=== PATIENT | male | born 1975 | race Caucasian/White ===

== ENCOUNTER 2023-01-21 08:50 | Outpatient (CLI) | payer BC, SELFPAY ==
[2023-01-21 18:44] LABS: Basophils Percent Auto 0.7 % (0.2-1.2); Eosinophils Percent Auto 0.7 % (0-4.4); Hematocrit 49.3 % (42.0-52.0); Hemoglobin 16.1 g/dL (14.0-18.0); Immature Granulocyte Absolute 0.01 K/mm3 (0.00-0.031); Immature Granulocyte Percent A 0.2 % (0-0.5); Lymphocytes Absolute Auto 1.61 K/mm3 (0.9-3.2); Lymphocytes Percent Auto 35.6 % (18.3-44.2); Mean Corpuscular HGB Conc 32.7 g/dl (32-36); Mean Corpuscular Hemoglobin 28.8 pg (26-34); Monocytes Absolute Auto 0.5 K/mm3 (0.1-0.6); Monocytes Percent Auto 10.4 % (2.6-8.5); Neutrophils Absolute Auto 2.4 K/mm3 (1.3-6.7); Neutrophils Percent Auto 52.4 % (45.5-73.1); Platelet Count Result 221 k/mm3 (150-375); Red Cell Distribution Width 13.2 % (11.5-14.5); White Blood Count 4.5 K/mm3 (4.5-10.0)
[2023-01-21 19:29] LABS: Amorphous Sediment Urine Present; Appearance Urine Turbid (Clear); Bacteria Urine None Seen /hpf; Bilirubin Urine Negative (Negative); Blood Urine Negative (Negative); Color Urine Dark Yellow (Yellow); Glucose Urine UA Negative (Negative); Ketones Urine Trace mg/dL (Negative); Leukocyte Esterase Ur Trace LEU/UL (NEGATIVE); Mucus Urine Present /lpf; Need Manual Microscopic Reviewed; Nitrate Urine Negative (Negative); Non Pathogenic Casts 0-2; Protein Urine Trace mg/dL (Negative); RBC Urine 0-2 /hpf (0-2); Specific Grav Ur 1.028 (1.001-1.035); Squamous Epithelial Cell Urine None seen /hpf (Few); WBC Urine 0-5 /hpf (0-3)
[2023-01-21 19:30] LABS: Add Urine Microscopic? YES
[2023-01-21 19:52] LABS: Alanine Aminotransferase 29 U/L (6-50); Albumin Level 4.7 g/dL (3.5-5.1); Alkaline Phosphatase 58 U/L (38-126); Anion Gap 7 mmol/L (8-16); Aspartate Amino Transferase 34 U/L (17-59); Bilirubin,Total 0.9 mg/dL (0.2-1.3); Blood Urea Nitrogen 14 mg/dL (9-20); Calcium 9.2 mg/dL (8.4-10.2); Carbon Dioxide 30 mmol/L (22-30); Chloride 101 mmol/L (98-107); Cholesterol 221 mg/dL (0-200); Estimated Glomerular Filt Rate > 60; Glucose 88 mg/dL (65-110); HDL Direct 45 mg/dL; Potassium 4.3 mmol/L (3.4-5.0); Sodium 138 mmol/L (137-145); Triglycerides 88 mg/dL (<150)
[2023-01-21 20:03] LABS: LDL Cholesterol Direct 145 mg/dL
[2023-01-21 20:22] LABS: Prostate Specific Antigen 0.8 ng/mL (< OR = 4.0)
== END 2023-01-21 08:51 | disposition home or self-care (01) ==
LOC: ANHGOSHLAB 08:51
PROVIDERS: PCP Internal Medicine; Visit Provider Internal Medicine
DX: Z13.228 Encounter for screening for other metabolic disorders (principal); Z13.220 Encounter for screening for lipoid disorders; Z12.5 Encounter for screening for malignant neoplasm of prostate; Z80.51 Family history of malignant neoplasm of kidney
CPT/HCPCS: 36415; 80053; 80061; 81001; 84153; 85025; G0103

== ENCOUNTER → 2023-06-07 11:06 | Outpatient (CLI) | payer BC, SELFPAY ==
--- NOTE | ~2023-06-07 | MR_ITS ---
MRI of the brain Clinical History: Dizziness and giddiness Technique: Axial and sagittal T1-weighted images were acquired. These were followed by axial T2-weigh rosie, diffusion weighted, gradient, and FLAIR images. Findings: No abnormal signal seen in the brain parenchyma. No acute infarct, intracranial hemorrhage, or mass lesion. Ventricles and subarachnoid spaces are unremarkable. Orbits are unremarkable. Paranasal sinuses and m astoid air cells are clear. Major intracranial flow voids are grossly intact. Sagittal midline structures are intact. IMPRESSION: No significant abnormality identified. Reviewed, dictated and finalized at location M.
== END ==
PROVIDERS: PCP Internal Medicine; Visit Provider Internal Medicine
DX: R42 Dizziness and giddiness (principal); R51.9 Headache, unspecified
CPT/HCPCS: 70551

== ENCOUNTER 2023-07-15 01:44 | Day surgery (SDC) | payer BC, SELFPAY ==
[2023-07-06 13:33] VITALS: BMI 25.2
--- NOTE | 2023-07-14 14:53 | PM.HPGS ---
History of Present Illness History of Present Illness Consent: Risks, benefits, and alternatives have been discussed and questions answered. Patient agrees to proceed with procedure. Chief complaint: neoplasm screening Narrative: Tone Cantu III is a 47 year old male Referred for colon cancer screening. Review of Systems Review of Systems: All systems reviewed & are unremarkable except as noted in HPI and below PMFSH Past Medical History Medical History Gynecomastia Surgical History Surgical History Joint replaced BL 1995- Right 1998- Left Family History Family History Father MVA (motor vehicle accident) Mother Renal carcinoma Sibling Renal carcinoma Social History Social History Smoking status: Never smoker Alcohol intake: never Substance use: never Substance use type: does not use Lack of Transportation: No Lack of Food: Never True Current Housing: I Have Housing Concerned About Future Housing: No Difficulty Paying Gas/Electric Bills: No Difficulty Paying for Meds: No Currently Unemployed: No Education: Bachelor's Degree Difficulty w/ Childcare or Family Care: No Living arrangements: with family Spiritual care concerns: No Meds Home Medications and Allergies Home Medications Medication Instructions Recorded Confirmed Type ascorbic acid (vitamin C) 100 mg 500 mg PO DAILY 05/25/23 07/15/23 History tablet cholecalciferol (vitamin D3) 100 100 mcg PO DAILY 05/25/23 07/15/23 History mcg (4,000 unit) tablet turmeric 400 mg capsule 500 mg PO DAILY 05/25/23 07/15/23 History vitamin E (dl, acetate) 180 mg 180 mg PO DAILY 05/25/23 07/15/23 History (400 unit) capsule zinc acetate 50 mg (zinc) capsule 50 mg PO DAILY 05/25/23 07/15/23 History Allergies Allergy/AdvReac Type Severity Reaction Status Date / Time No Known Allergies Allergy Verified 07/15/23 07:48 Exam Const: General: alert Orientation/consciousness: patient oriented x3 Resp: Auscultation: clear to auscultation bilaterally Cardio: Rhythm: regular rhythm GI: GI Palp: Yes Soft to palpation and No Tenderness to palpation present (GI) Neuro: General: patient oriented x3 Assessment and Plan Assessment and plan (1) Screening for colon cancer: Code(s): Z12.11 - Encounter for screening for malignant neoplasm of colon Status: Acute Assessment and Plan: Please inform patient that the polyp(s) was/were the 'pre'-cancerous type. Colonoscopy should be repeated within 5 years
[2023-07-15 07:49] VITALS: BP 114/89; PULSE 60; RESP 18; TEMP 36.2; O2SAT 99; BMI 25.9
[2023-07-15] MEDS: LACTATED RINGERS 1,000 ML 150 ML IV CONT (08:01)
--- NOTE | 2023-07-15 08:48 | P.PNAN_ITS ---
Anes - Initial Pre Proc Eval Procedure: Operation Date: 07/15/23 09:00 Proposed Procedures p Screening Colonoscopy - Ike Cutler MD Date/Time: 07/15/23 08:48 Surgeon: Ike Cutler MD Pre Op Diagnosis: neoplasm screening Patient Data Age: 47 Gender: M Height: 1.85 m Weight: 89 kg Last Vital Signs Temp 97.2 F L 07/15/23 07:49 Pulse 60 07/15/23 07:49 Resp 18 07/15/23 07:49 BP 114/89 07/15/23 07:49 Pulse Ox 99 07/15/23 07:49 O2 Del Method Room Air 07/15/23 07:49 Allergies Allergy/AdvReac Type Severity Reaction Status Date / Time No Known Allergies Allergy Verified 07/15/23 07:48 Home Medications Medication Instructions Recorded Confirmed Type ascorbic acid (vitamin C) 100 mg 500 mg PO DAILY 05/25/23 07/15/23 History tablet cholecalciferol (vitamin D3) 100 100 mcg PO DAILY 05/25/23 07/15/23 History mcg (4,000 unit) tablet turmeric 400 mg capsule 500 mg PO DAILY 05/25/23 07/15/23 History vitamin E (dl, acetate) 180 mg 180 mg PO DAILY 05/25/23 07/15/23 History (400 unit) capsule zinc acetate 50 mg (zinc) capsule 50 mg PO DAILY 05/25/23 07/15/23 History Patient hx anesthesia problems: none Family hx anesthesia problems: none Results Review: All pre-operative results and documents have been reviewed as part of the pre- operative evaluation. [facility] Past Medical History Medical History Gynecomastia Surgical History Surgical History Joint replaced BL 1995- Right 1998- Left Family History Family History Father MVA (motor vehicle accident) Mother Renal carcinoma Sibling Renal carcinoma Social History Social History Smoking status: Never smoker Alcohol intake: never Substance use: never Substance use type: does not use Lack of Transportation: No Lack of Food: Never True Current Housing: I Have Housing Concerned About Future Housing: No Difficulty Paying Gas/Electric Bills: No Difficulty Paying for Meds: No Currently Unemployed: No Education: Bachelor's Degree Difficulty w/ Childcare or Family Care: No Living arrangements: with family Spiritual care concerns: No Anes - Eval Final PreProcedure Day of Procedure 07/15/23 08:48 Patient weight: normal Heart: regular rate and rhythm Lungs: clear to auscultation Airway: Mallampati scale class II Neurological: alert and oriented Last oral intake: >/= 8 hours ASA classification: I Emergent: no Anesthetic plan: proceed Anesthesia type and monitoring: general GIVS and standard monitoring Results Review: All pre-operative results and documents have been reviewed as part of the pre- operative evaluation. Informed Consent: The patient's anesthetic plan and its attendant risks and benefits were discussed with the patient/family/POA. Questions were solicited and answers provided to the satisfaction of the patient/family/POA.
[2023-07-15 09:09] VITALS: BP 108/73; PULSE 58; O2SAT 98
[2023-07-15 09:19] VITALS: BP 103/69; PULSE 56; O2SAT 100
[2023-07-15 09:29] VITALS: BP 119/84; PULSE 54; O2SAT 100
== END 2023-07-15 09:50 | disposition home or self-care (01) ==
PROVIDERS: PCP Internal Medicine; Visit Provider Internal Medicine Gastroenterology
PROC: 0DJD8ZZ Inspection of Lower Intestinal Tract, Via Natural or Artificial Opening Endoscopic (ICD-10-PCS; CPT 45378; principal; 2023-07-15 09:00)
DX: Z12.11 Encounter for screening for malignant neoplasm of colon (principal); K64.8 Other hemorrhoids
CPT/HCPCS: 45378; J2704; J7120

== ENCOUNTER 2024-02-29 10:49 | Outpatient (CLI) | payer BC, SELFPAY ==
--- NOTE | ~2024-02-29 | MR_ITS ---
MRI of the right knee Clinical history: Pain Technique: Coronal proton density and proton density-weighted images, sagittal proton-density and T2 fat-sat images, and axial proton-density fat-saturated images were acquired. Findings: Anterior and posterior cruciate ligaments are intact. Medial collateral ligament and the la teral collateral ligament complex are intact. There is complex tearing of the posterior horn and body of the medial meniscus. Lateral meniscus is i ntact, without evidence of tear. 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 There i s mild chondral thinning along the medial femoral condyle. Extensor mechanism is intact. No significant joint effusion or Oconnell's cyst. Impression: Complex tearing of the posterior horn and body of medial meniscus. 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 Reviewed, dictated and finalized at [facility]. Impression: Complex tearing of the posterior horn and body of medial meniscus. 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
== END 2024-02-29 10:50 ==
LOC: GOSHIMG 10:50
PROVIDERS: PCP Internal Medicine
DX: M25.561 Pain in right knee (principal); S83.231A Complex tear of medial meniscus, current injury, right knee, initial encounter; M94.261 Chondromalacia, right knee
CPT/HCPCS: 73721

== ENCOUNTER 2024-12-25 09:50 | Outpatient (CLI) | payer BC, SELFPAY ==
--- NOTE | ~2024-12-25 | MR_ITS ---
MRI of the cervical spine Clinical History: Right shoulder pain Technique: Axial T2-weighted and gradient images, and sagittal T1-weighted, T2-weighted, and STIR edith ges were acquired. Findings: There is no fracture or subluxation of the cervical spine. Vertebral bodies maintain normal height and alignment. No bone marrow signal reality seen. At C2-C3, there is no disc bulge or herniation. No spinal canal stenosis, cord compression, or neural foraminal narrowing. At C3-C4, there is moderate degenerative distended with mild disc osteophyte complex. Old minimal john ateral neural foraminal narrowing. No canal stenosis or cord compression. At C4-C5, there is mild disc osteophyte complex, with mild facet arthropathy. Probable right neural f oraminal narrowing. Left neural foramen preserved. No central canal stenosis or cord compression. At C5-C6, there is moderate degenerative disc narrowing. No spinal canal stenosis or cord compression . Probable minimal bilateral neural foraminal narrowing. At C6-C7, there is moderate degenerative distended with mild bilateral neural foraminal narrowing, le ft worse than right. No canal stenosis or cord compression. No abnormal signal seen in the spinal cord. Paravertebral soft tissues are unremarkable. Impression: Mild to [id number] degenerative sclerotic changes, as above. Reviewed, dictated and finalized at [facility]. Impression: Mild to [id number]-[id number] degenerative sclerotic changes, as above.
== END 2024-12-25 09:51 | disposition home or self-care (01) ==
PROVIDERS: PCP Internal Medicine; Visit Provider Physician Assistant
DX: M47.892 Other spondylosis, cervical region (principal)
CPT/HCPCS: 72141

== ENCOUNTER 2025-02-26 10:21 | Outpatient (CLI) | payer BC, SELFPAY ==
--- OUTSIDE RECORDS SUMMARY | 2025-02-26 10:55 | XMS_ITS | Encounter Summary ---
Author Organization [facility] Address [address] [place] [address] Care Team Providers Care Floor Technician Name Role Phone Unavailable Primary Care Provider Unavailabl e Encounter Details Date Type Department Care Team (Late st Contact Info) Description 08/24/2024 Lab Requisition [facility] - DermPath Lab [address] [place] [address] Mia Jorge DO [address] [address] [place] [address] Social History Tobacco Use Types Packs/Day Years Used Date Smoking Tobacco: Never Assessed Sex and Gender Information Value Date Recorded Sex Assigned at Not on file 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 Gender Identity Not on file Sexual Orientation Not on file documented as of this encounter Plan of Treatment Not on file documented as of this encounter Procedures Procedure Name Priority Date/Time Associated Diagnosis Comments DERMATOPATHOLOGY Routine 08/24/2024 3:10 PM TISSUE TECHNICIAN documented in this encounter Results * DERMATOPATHOLOGY (08/24/2024 3:10 PM TISSUE TECHNICIAN) Case Report Dermatopathology Report Case: [id number] Authorizing Provider: Mia Jorge DO Collected: 08/24/2024 03:10 PM Ordering Location: [facility] Physician [facility] - Received: 08/25/2024 11:11 AM DermPath Lab Pathologist: Ariela Mascorro MD Specimen: Skin, left FA 4 1:21 PM TISSUE TECHNICIAN DERMATOPATHOLOGY LABORATORY Final Diagnosis Specimen A. SKIN, left FA: DERMAL SCAR RESIDUAL SQUAMOUS CELL CARCINOMA NOT IDENTIFIED (L90.5) 4 1:21 PM TISSUE TECHNICIAN DERMATOPATHOLOGY LABORATORY at 1321 TISSUE TECHNICIAN Clinical History SCCIS See prior biopsy 4 1:21 PM [facility] DERMATOPATHOLOGY LABORATORY Gross Description Specimen A: Received is one formalin filled container labeled with the patient's name and designated left FA. The specimen consists of a non-oriented ellipse of skin measuring 14o01e7 mm. The epidermal surface is unremarkable. The margin is inked green. The 12 o'clock and 6 o'clock tips are submitted in cassette 1. The remainder of the ellipse is serially sectioned and submitted in cassette 2-3. Jar 0. 4 1:21 PM [facility] DERMATOPATHOLOGY LABORATORY Microscopic Description Specimen A. SKIN, left FA: There are fibroblasts and collagen bundles oriented parallel to the skin surface. There are elongated blood vessels, some of which are oriented perpendicular to the skin surface. No residual squamous cell carcinoma is identified. 1:21 PM [facility] DERMATOPATHOLOGY LABORATORY Disclaimer An external and internal positive and negative controls are appropriate for the histochemical, immunohistochemical and immunofluorescence stain(s) in this case (if any), except where stated explicitly. The performance characteristics of the stain(s) cited in this report were developed and its performance characteristic determined by the Dermatopathology Laboratory at [facility], directed by Dr. Trupti Rosa. These tests need not be, and therefore are not, approved by the [place] Food and Drug Administration. The tests are used for clinical purposes. Billing Codes Specimen Charges Stain Charges 20286 1 4 1:21 PM [facility] DERMATOPATHOLOGY LABORATORY Embedded Images 1:21 PM [facility] DERMATOPATHOLOGY LABORATORY Pathology/Cytolo gy TISSUE SPECIMEN FROM SKIN / Unknown 08/24/2024 3:10 PM TISSUE TECHNICIAN 08/25/2024 11:11 AM [facility] us Mia Jorge DO LAB - PATHOLOGY/CYTOLOGY ORDERABLES Final Result DERMATOPATHOLOGY LABORATORY [facility] - Department of Dermatology [address] [place] [address], [facility] [phone] documented in this encounter Visit Diagnoses Not on filedocumented in this encounter
--- OUTSIDE RECORDS SUMMARY | 2025-02-26 10:55 | XMS_ITS | Clinical Summary ---
Author Organization [facility] Address [address] [place] [address] Care Team Providers Care Java Security Architect Name Role Phone Unavailable Primary Care Provider Unavailabl e Source Comments [facility],non-owned Affiliates and Associated Physician Practices is amultiple site organization consisting of ambulatory clinics and hospital sitesin [place], [place], [place] and [place]. This disclosure is being madepursuant to the Care Everywhere program and may not contain all information available regarding this patient. 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 Gender Identity Not on file Sexual Orientation Not on file Plan of Treatment Health Maintenance Due Date Last Done Comments COLOGUARD (AGES 45-75) - COL ON CA SCREENING 1974 COLON MONITORING 1974 COLONOSCOPY - COLON CA SCREENING 1974 CT COLONOGRAPHY - COLON CA SCREENING 1974 Colorectal Cancer Screening 1974 FIT - COLON CA SCREENING 1974 FLEX SIG - COLON CA SCREENING 1974 LIPID TESTING 1974 HIV SCREENING 1989 HEPATITIS C SCREENING 08/14/1992 DTAP/TDAP/TD VACCINES (1 - Tdap) 1993 HEPATITIS B VACCINE (1 of 3 - 19+ 3-dose series) 1993 COVID-19 VACCINE (1 - 2023-2 5 season) 2024 PNEUMOCOCCAL VACCINE 50+ (1 of 1 - PCV) 2024 ZOSTER VACCINE (1 of 2) 2024 DEPRESSION SCREENING 10/11/2024 INFLUENZA VACCINE (Season Ended) 2025 HIB VACCINE Aged Out No longer eligi ble based on patient's age to complete this topic HPV VACCINE Aged Out No longer eligi ble based on patient's age to complete this topic MENINGOCOCCAL (Group B) VACC INE SHARED DECISION-MAKING Aged Out No longer eligibl e based on patient's age to complete this topic MENINGOCOCCAL GROUPS A/C/Y/W VACCINE Aged Out No longer eligible b ased on patient's age to complete this topic Insurance [facility]
--- OUTSIDE RECORDS SUMMARY | 2025-02-26 10:56 | XMS_ITS | Encounter Summary ---
Author Organization [facility] Address [address] [place] [address] Care Team Providers Care Forensic Computer Examiner Name Role Phone Unavailable Primary Care Provider Unavailabl e Encounter Details Date Type Department Care Team (Late st Contact Info) Description 07/11/2024 Lab Requisition [facility] - DermPath Lab [address] [place] [address] Mia Jorge DO [address] [place] [address] Social History Tobacco Use Types Packs/Day Years Used Date Smoking Tobacco: Never Assessed Sex and Gender Information Value Date Recorded Sex Assigned at Not on file 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 Gender Identity Not on file Sexual Orientation Not on file documented as of this encounter Plan of Treatment Not on file documented as of this encounter Procedures Procedure Name Priority Date/Time Associated Diagnosis Comments DERMATOPATHOLOGY Routine 07/11/2024 11:1 8 AM CDT documented in this encounter Results * DERMATOPATHOLOGY (07/11/2024 11:18 AM CDT) Case Report Dermatopathology Report Case: [id number] Authorizing Provider: Mia Jorge DO Collected: 07/11/2024 11:18 AM Ordering Location: [facility] Physician [facility] - Received: 07/11/2024 03:57 PM DermPath Lab Pathologist: Rosalia Rosa MD Specimen: Skin, left forearm 4:05 PM CDT DERMATOPATHOLOGY LABORATORY Final Diagnosis Specimen A. 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 The specimen consists of a shave biopsy measuring 8x8x1 mm. Jar 0. 4:05 PM T DERMATOPATHOLOGY LABORATORY Microscopic Description Specimen A. SKIN, left forearm: The epidermis shows parakeratosis, full thickness disorderly maturation of keratinocytes, mitoses at different levels, and dyskeratotic cells. 4:05 PM T DERMATOPATHOLOGY LABORATORY Disclaimer An external and internal positive and negative controls are appropriate for the histochemical, immunohistochemical and immunofluorescence stain(s) in this case (if any), except where stated explicitly. The performance characteristics of the stain(s) cited in this report were developed and its performance characteristic determined by the Dermatopathology Laboratory at [facility], directed by Dr. Trupti Rosa. These tests need not be, and therefore are not, approved by the [place] Food and Drug Administration. The tests are used for clinical purposes. Billing Codes Specimen Charges Stain Charges 49732 1 4:05 PM CDT DERMATOPATHOLOGY LABORATORY Embedded Images 4:05 PM CDT DERMATOPATHOLOGY LABORATORY Pathology/Cytolo gy TISSUE SPECIMEN FROM SKIN / Unknown 07/11/2024 11:18 AM CDT 07/11/2024 3:57 PM CDT us Mia Jorge DO LAB - PATHOLOGY/CYTOLOGY ORDERABLES Final Result DERMATOPATHOLOGY LABORATORY [facility] - Department of Dermatology [address] [place] [address], [facility] [phone] documented in this encounter Visit Diagnoses Not on filedocumented in this encounter
[2025-02-26 20:10] LABS: Basophils Percent Auto 0.5 % (0.2-1.2); Eosinophils Absolute Auto 0.1 K/mm3 (0-0.3); Eosinophils Percent Auto 1.4 % (0-4.4); Hematocrit 47.8 % (42.0-52.0); Hemoglobin 16.1 g/dL (14.0-18.0); Immature Granulocyte Absolute 0.01 K/mm3 (0.00-0.031); Immature Granulocyte Percent A 0.2 % (0-0.5); Lymphocytes Absolute Auto 1.37 K/mm3 (0.9-3.2); Mean Corpuscular HGB Conc 33.7 g/dl (32-36); Mean Corpuscular Hemoglobin 28.9 pg (26-34); Mean Corpuscular Volume 85.8 fl (80-100); Mean Platelet Volume 11.1 fl (7.4-10.4); Monocytes Absolute Auto 0.4 K/mm3 (0.1-0.6); Monocytes Percent Auto 9.4 % (2.6-8.5); Neutrophils Absolute Auto 2.3 K/mm3 (1.3-6.7); Neutrophils Percent Auto 55.5 % (45.5-73.1); Platelet Count Result 220 k/mm3 (150-375); Red Blood Count 5.57 M/mm3 (4.6-6.20); Red Cell Distribution Width 12.4 % (11.5-14.5); White Blood Count 4.2 K/mm3 (4.5-10.0)
[2025-02-26 21:45] LABS: Alanine Aminotransferase 35 U/L (6-50); Albumin Level 4.4 g/dL (3.5-5.1); Alkaline Phosphatase 44 U/L (38-126); Anion Gap 9 mmol/L (4-12); Aspartate Amino Transferase 48 U/L (17-59); Bilirubin,Total 0.7 mg/dL (0.2-1.3); Blood Urea Nitrogen 15 mg/dL (9-20); Carbon Dioxide 25 mmol/L (22-30); Chloride 103 mmol/L (98-107); Cholesterol 245 mg/dL (0-200); Estimated Glomerular Filt Rate > 60; Glucose 83 mg/dL (65-110); HDL Direct 50 mg/dL; Potassium 4.3 mmol/L (3.4-5.0); Sodium 137 mmol/L (137-145); Triglycerides 108 mg/dL (<150)
[2025-02-26 21:57] LABS: LDL Cholesterol Direct 149 mg/dL
[2025-02-26 22:15] LABS: Prostate Specific Antigen 1.1 ng/mL (< OR = 4.0)
[2025-03-01 15:12] LABS: Apolipoprotein B 122 mg/dL
== END 2025-02-26 10:22 | disposition home or self-care (01) ==
LOC: ANHGOSHLAB 10:22
PROVIDERS: PCP Internal Medicine; Visit Provider Internal Medicine
DX: Z13.220 Encounter for screening for lipoid disorders (principal); Z13.228 Encounter for screening for other metabolic disorders; Z12.5 Encounter for screening for malignant neoplasm of prostate; Z80.51 Family history of malignant neoplasm of kidney
CPT/HCPCS: 36415; 80053; 80061; 82172; 84153; 85025; G0103

== ENCOUNTER 2025-04-19 14:21 | Emergency (ER) | payer BC, SELFPAY ==
--- NOTE | ~2025-04-19 | XR_ITS ---
EXAM/ PROCEDURE: XR foot RT min 3V - 04/19/2025 14:30 CDT HISTORY: 49 years old Male with s/p running bases, dorsal, medial Rt foot pain/swelling. COMPARISON: None available TECHNIQUE: Four view(s) FINDINGS/ IMPRESSION: There are no fractures or dislocations.Joint space narrowing, subchondral sclerosis, subchondral cyst formation and osteophyte formation, compatible with mild osteoarthritis. Calcaneal enthesopathy. Reviewed, dictated and finalized at location A.
[2025-04-19 14:30] VITALS: BP 125/82; PULSE 64; RESP 16; TEMP 36.1; O2SAT 99
--- NOTE | 2025-04-19 15:18 | ED.LOWEXIN ---
HPI - Extremity Injury (Lower) General Chief Complaint: Extremity Injury, Lower Stated Complaint: Right Foot Pain Time Seen by Provider: 04/19/25 14:45 Source: patient and RN notes reviewed Mode of arrival: ambulatory Limitations: no limitations History of Present Illness HPI Narrative: 49-year-old male Presents Express Care complaining of injury to right foot yesterday. Patient reports playing softball yesterday [place] in [place] 3[place] and when he was running to home plate he felt dorsal medial pain was right foot. Patient denies any. Injuries, falls, rolling his ankle. Patient's has been taking Tylenol and ibuprofen with relief. Patient denies any numbness, tingling or any other injuries. Patient denies significant past medical history. Related Data Home Medications ?Medication ?Instructions ?Recorded ?Confirmed ?Last Taken ?Type ascorbic acid (vitamin C) 100 mg 500 mg PO DAILY 05/25/23 04/19/25 Unknown History tablet cholecalciferol (vitamin D3) 100 100 mcg PO DAILY 05/25/23 04/19/25 Unknown History mcg (4,000 unit) tablet turmeric 400 mg capsule 500 mg PO DAILY 05/25/23 04/19/25 Unknown History vitamin E (dl, acetate) 180 mg 180 mg PO DAILY 05/25/23 04/19/25 Unknown History (400 unit) capsule zinc acetate 50 mg (zinc) capsule 50 mg PO DAILY 05/25/23 04/19/25 Unknown History Allergies Allergy/AdvReac Type Severity Reaction Status Date / Time No Known Allergies Allergy Verified 04/19/25 14:28 Review of Systems Review of Systems: CONSTITUTIONAL: Denies fever, chills, or sweats. EYES: Denies visual changes, redness, or discharge. ENT: Denies rhinorrhea, congestion, sore throat, or otalgia. CARDIOVASCULAR: Denies chest pain, palpitations, or edema. RESPIRATORY: Denies cough or dyspnea. GASTROINTESTINAL: Denies abdominal pain, nausea, vomiting, or diarrhea. GENITOURINARY: Denies dysuria or hematuria. SKIN: Denies rash, wound, or itching. MUSCULOSKELETAL: Denies back pain, joint pain, or myalgia. Positive for right foot injury and swelling NEUROLOGIC: Denies headache, numbness, or weakness. PSYCHIATRIC: Denies anxiety or depression. All other systems reviewed are negative, except as documented in HPI. [facility] Past Medical History Medical History Healthy adult male Tinnitus Gynecomastia Surgical History Surgical History History of knee surgery Status post right knee replacement Joint replaced BL 1995- Right 1998- Left Family History Family History Father MVA (motor vehicle accident) Mother Renal carcinoma Sibling Renal carcinoma Mother Family history of malignant neoplasm of kidney Family history of renal cell carcinoma Other Diabetes mellitus Hypertension Social History Social History Smoking status: Never smoker Alcohol intake: never Substance use: never Substance use type: does not use Lack of Transportation: No Lack of Food: Never True Current Housing: I Have Housing Concerned About Future Housing: No Difficulty Paying Gas/Electric Bills: No Difficulty Paying for Meds: No Currently Unemployed: No Education: Bachelor's Degree Difficulty w/ Childcare or Family Care: No Living arrangements: with family Spiritual care concerns: No Comments At the time of my signature, I reviewed and agree with the nursing past medical, surgical, social, and family history. There is no relevant family history pertinent to the patient complaint. Exam Narrative: GENERAL: This is a well-nourished, well-developed adult, in no apparent distress. They are non ill-appearing, nontoxic appearing. HEAD: normocephalic, atraumatic. EYES: Sclera clear/white. Vision is grossly intact. Conjunctiva normal. Extraocular movement intact. EARS: External ears normal Hearing grossly intact. NOSE: External nose normal THROAT: Mucous membranes moist NECK: Neck supple CARDIOVASCULAR: Regular rate and rhythm RESPIRATORY: Respiratory rate normal, respiratory effort nonlabored, no respiratory distress NEURO: awake, alert, and oriented to person, place and time. There were no obvious focal neurologic abnormalities. EXTREMITIES: Right foot: No obvious deformity, injury, Bruising, redness. Mild swelling to the dorsal medial area of the midfoot. Normal range of motion. Normal dorsiflexion plantar flexion of ankle. Tenderness to palpation to the dorsal surface of the medial midfoot. Capillary refill less than 3 seconds. Right medial Pulse 2 +palpable. Normal sensation. Neurovascular status intact distal injury. Patient is able wiggle his toes. BACK: Nontender without deformity. Course Course Emergency Course: Portions of this record may have been created with voice recognition software Level of Care: Express Care Visit Vital Signs Vital signs: Vital Signs Temperature 96.9 F L 04/19/25 14:30 Pulse Rate 64 04/19/25 14:30 Respiratory Rate 16 04/19/25 14:30 Blood Pressure 125/82 04/19/25 14:30 Pulse Oximetry 99 04/19/25 14:30 Temperature 96.9 F L 04/19/25 14:30 Pulse Rate 64 04/19/25 14:30 Respiratory Rate 16 04/19/25 14:30 Blood Pressure 125/82 04/19/25 14:30 Pulse Oximetry 99 04/19/25 14:30 Reviewed MDM - Extremity Injury (Lower) MDM Narrative Medical decision making narrative: Right foot x-ray negative for any fractures or acute findings. Incidental finding of mild arthritis. Likely a foot sprain. Recommend supportive footwear and conservative therapy. Discussed physical exam findings. Advised supportive measures and signs/symptoms to go to the ER. Pt is appropriate for outpt treatment and f/u. Differential Diagnosis Differential diagnosis: Likely other (Foot sprain, foot strain, foot fracture, arthritis) Imaging Data Radiologist's impression: HISTORY: 49 years old Male with s/p running bases, dorsal, medial Rt foot pain/swelling. COMPARISON: None available TECHNIQUE: Four view(s) FINDINGS/ IMPRESSION: There are no fractures or dislocations.Joint space narrowing, subchondral sclerosis, subchondral cyst formation and osteophyte formation, compatible with mild osteoarthritis. Calcaneal enthesopathy. Critical Care Time Critical Care Time Critical Care Time: No Discharge Plan Discharge Clinical Impression: Injury of foot, right Patient Disposition: Home Condition: Stable Instructions: Foot Sprain (ED) Additional Instructions: X-ray right foot is negative for any fractures or acute findings. It does show mild arthritis. Rest and elevate the leg; bear weight as tolerated Wear good supportive shoes. Apply ice 15-20 minute intervals several times a day Motrin 600mg -800mg every 8 hours, alternate with Tylenol 1000mg every 8 hours as needed Follow up with your primary care provider or your orthopedist in 1-2 weeks if pain persist. Patient Language: [place] Island[place] Prescriptions: No Action ascorbic acid (vitamin C) 100 mg tablet 500 mg PO DAILY cholecalciferol (vitamin D3) 100 mcg (4,000 unit) tablet 100 mcg PO DAILY vitamin E (dl, acetate) 180 mg (400 unit) capsule 180 mg PO DAILY turmeric 400 mg capsule 500 mg PO DAILY zinc acetate 50 mg (zinc) capsule 50 mg PO DAILY Follow-up/Referrals: Doug Lopez DO [Primary Care Provider] - Time of Disposition: 15:17
== END 2025-04-19 15:21 | disposition home or self-care (01) ==
PROVIDERS: PCP Internal Medicine
DX: S99.921A Unspecified injury of right foot, initial encounter (principal); X58.XXXA Exposure to other specified factors, initial encounter; Y93.64 Activity, baseball; Z96.651 Presence of right artificial knee joint
CPT/HCPCS: 73630; 99213; G0463